=== PATIENT | female | born 2000 ===

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

== ENCOUNTER → 2023-12-20 | Outpatient (CLI) | payer BC | LOC: LAB SHORT 15:07 → LAB 15:07 | PROVIDERS: Physician Assistant | DX: Z01.419 Encounter for gynecological examination (general) (routine) without abnormal findings (principal) | CPT/HCPCS: G0123 ==